=== PATIENT | male | born 1980 | race Caucasian/White ===

== ENCOUNTER → 2018-03-10 22:40 | Outpatient (CLI) | payer OTHER, SELFPAY ==
[2018-03-10 22:56] LABS: Uric Acid 7.7 mg/dL (3.5-7.2)
== END ==
PROVIDERS: Visit Provider Nurse Practitioner
DX: M10.9 Gout, unspecified (principal)
CPT/HCPCS: 84550

== ENCOUNTER → 2019-10-22 21:49 | Outpatient (CLI) | payer OTHER, SELFPAY ==
[2019-10-22 17:22] VITALS: BMI 27.0
[2019-10-22 22:14] LABS: Absolute Lymphocyte Count 2.02 X10^3/uL (0.83-4.51); Absolute Neutrophil Count 3.9 X10^3/uL (2.0-7.7); Basophil# 0.04 X10^3/uL; Basophil% 0.6 % (0-1); Eosinophil# 0.31 X10^3/uL; Eosinophils% 4.5 % (0-5); Hematocrit 45.6 % (40-54); Hemoglobin 15.7 g/dL (13.0-16.5); Lymphocyte # 2.02 X10^3/ul (4.0); Lymphocyte % 29.5 % (19-41); Mean Corp Hgb Conc 34.4 g/dL (32-36); Mean Corpuscular Hgb 30.2 pg (27.0-32.0); Mean Corpuscular Volume 87.7 fL (80-94); Mean Platelet Vol. 11.7 fl (6.2-12.0); Monocyte# 0.55 X10^3/uL; NRBC Flagged by Analyzer 0 % (0-5); Neutrophil # 3.92 X10^3/uL (2.7-7.7); Neutrophil % 57.3 % (47-70); Platelet Count 187 K/mm3 (150-450); RBC Distribution Width CV 11.8 % (11.6-14.6); RBC Distribution Width SD 37.2 fl (35.1-43.9); White Blood Count 6.9 K/mm3 (4.4-11.0)
[2019-10-22 22:21] LABS: ALB/GLOB Ratio 1.2 RATIO (0.9-2.4); AST(SGOT) 26 U/L (15-37); Alanine Aminotransfer ALT/SGPT 45 U/L (16-61); Alkaline Phosphatase 62 U/L (45-117); Amylase 61 U/L (25-115); Anion Gap 8 (5-15); BUN 15 mg/dL (7-18); BUN/Creat Ratio 10.9 RATIO (10-20); Calcium,Total 8.6 mg/dL (8.5-10.1); Chloride 105 mmol/L (98-107); Creatinine, Serum 1.37 mg/dL (0.70-1.30); EST Glomerular Filtration Rate 62 mL/min (>60); Est Glom Filt Rate - Afr Amer 75 mL/min (>60); Globulin 3.4 g/dL (2.2-4.2); Glucose 124 mg/dL (74-106); Lipase 106 U/L (73-393); Potassium 3.5 mmol/L (3.5-5.1); Protein, Total 7.4 g/dL (6.4-8.2); Sodium Level 140 mmol/L (136-145)
== END ==
PROVIDERS: Referring Provider Nurse Practitioner; Visit Provider Nurse Practitioner
DX: R10.13 Epigastric pain (principal)
CPT/HCPCS: 80053; 82150; 83690; 85025

== ENCOUNTER → 2020-07-05 21:46 | Outpatient (CLI) | payer OTHER, SELFPAY ==
[2020-07-05 16:45] VITALS: BMI 27.9
[2020-07-05 22:14] LABS: CPK Total, Creatine Kinase 194 U/L (39-308); Magnesium 2.2 mg/dL (1.6-2.6)
== END ==
PROVIDERS: Referring Provider Nurse Practitioner; Visit Provider Nurse Practitioner
DX: M62.838 Other muscle spasm (principal)
CPT/HCPCS: 82550; 83735

== ENCOUNTER → 2025-02-11 | Outpatient (CLI) | payer OTHER, SELFPAY ==
--- OUTSIDE RECORDS SUMMARY | 2025-02-11 22:47 | XMS RPT_ITS | CCD ---
Author Organization [facility] Care Team Providers Care Digital Engineer Name Role Phone Venice Aceves Unavailable Medications Completed/Discontinued Medications Medication Drug Class(es) Dates Sig (Normalized) Sig (Original) Magnesium (1 source) take 1 tablet by junior th once daily Magnesium TABS take one tablet by ORAL route daily Quantity: 0 Refills: 0 Ordered: 23-Oct-2020 DO Active Multiple Vitamins Oral Tablet (1 source) take 1 tablet by junior th once daily Multiple Vitamins Oral Tablet TAKE 1 TABLET DAILY. Quantity: 0 Refills: 0 Ordered: 23-Oct-2020 DO Active Vitamin B Complex Oral Tablet (1 source) take 1 tablet by junior th once daily Vitamin B Complex Oral Tablet TAKE 1 TABLET DAILY. Quantity: 0 Refills: 0 Ordered: 23-Oct-2020 DO Active Problems Problem Classification Problem Date Documented Da te Episodic/Chronic Other lower respiratory disease (1 source) Snoring; Translations: [Other respiratory abnormalities] Episodic Other nervous system disorders (1 source) Muscle fasciculation; Translations: [Abnormal involuntary movements] Episodic Results Test Name Value Interpretation Reference Range [facility] MRI Lumbar Spine w/oon 05-29 MRI Lumbar Spine w/o Clinical Information: Patient complains of low back pain radiates to both legs since 18 months. Study Technique: MRI lumbar spine was performed with Sagittal T1, T2 and STIR images. Axial T1 and T2 images were obtained. Comparisons: None. Findings: For purposes of numbering lumbar vertebral bodies on this study the most inferior normal diameter disc space will be considered L5-S1. No transitional vertebral body segments. Plain film radiographs would be required to confirm nomenclature used in this report, particularly prior to any spine intervention. Vertebral body height: No compression deformities. Disc height and Disc signal:Disc desiccation at L5-S1 level. Alignment: No spondylolisthesis. Straightening is noted. Bone marrow signal: No reconversion Conus medullaris: No findings seen. Paraspinal soft tissues: No abnormal inflammation or lesion detected. Other findings: No evidence of any focal lesion noted. Axial Imaging: L1-2: No significant disc bulge is seen. Facet articulations are intact. The neural foramina are patent. No evidence of canal stenosis at this level. L2-3: No significant disc bulge is seen. Facet articulations are intact. The neural foramina are patent. No evidence of canal stenosis at this level. L3-4: Circumferential bulge is seen indenting the thecal sac. There is mild bilateral neural foraminal stenosis. No evidence of canal stenosis at this level. Facet joint arthropathy and ligamentumflavum hypertrophy is noted. L4-5: Circumferential bulge is seen indenting the thecal sac. There is moderate bilateral neural foraminal stenosis. No evidence of canal stenosis at this level. Facet joint arthropathy and ligamentumflavum hypertrophy is noted. L5-S1: Circumferential bulge with 6 mm broad based posterior protrusion is seen compressing the thecal sac. There is moderate bilateral neural foraminal and mild central canal stenosis. Facet joint arthropathy and ligamentumflavum hypertrophy is noted. Impressions: 1. Circumferential bulge at L3-4 causing mild bilateral neural foraminal stenosis 2. Circumferential bulge at L4-5 causing moderate bilateral neural foraminal stenosis. 3. Circumferential bulge with broad based posterior herniation at L5-S1 causing moderate bilateral neural foraminal and mild central canal stenosis. Referring physician: Please call [phone] if you would like to speak with the radiologist about this report. 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 COMPARISON: None. ACCESSION NUMBER(S): [id number] ORDERING CLINICIAN: ALEXANDRIA ROMAN TECHNIQUE: MRI of the brain was performed with acquisition of axial FLAIR, axial diffusion-weighted, axial T1, axial T2 gradient echo, axial T2, axial T1 post-contrast, and volumetric axial T1 weighted postcontrast sequence with multiplanar reformats. Contrast: 16 mL of MultiHance was injected intravenously. FINDINGS: There is no acute intracranial hemorrhage or infarct. There is no abnormal extra-axial fluid collection or mass effect. The ventricles, sulci, and basilar cisterns are within normal limits. There is no signal abnormality within the brain parenchyma. There is no abnormal intracranial enhancement or mass. There is mild mucosal thickening within the left maxillary and sphenoid sinuses and within the ethmoid air cells, otherwise the visualized paranasal sinuses and mastoid air cells are clear. IMPRESSION: Unremarkable MRI brain. This study was interpreted at [facility]. Electronically signed by: MARELY LION MD Normal [facility] Office Visit (Neuro-General) on 10-23-2020 Follow-up visit Provider Impressions The patient is complaining of jumpy muscles that could be consistent with fasciculations. He also has snoring and states that these movements will wake him up in the middle of the night. His neurological examination is normal. The differential diagnosis for fasciculations includes myasthenia, ALS, MS, hypothyroidism, alcohol use, caffeine use, HIV, low copper level and B12 deficiency. Patient Discussion/Summary The patient needs an MRI of the brain with and without gadolinium. The patient needs a 3 limb EMG and nerve conduction study. The patient needs an extensive lab work-up and this has been ordered. The patient needs to decrease his alcohol and caffeine use. If the work-up is negative I will consider a second opinion with Dr. Paty Gann. I did tell him to call me 1 week after he has had the testing and I will give him the results over the phone. I discussed all these issues in detail with the patient and answered all of his questions. The patient follow-up with me in 6 months. Diagnoses/Problems Assessed Fasciculation (781.0) (R25.3) Snoring (786.09) (R06.83) Orders Fasciculation Good hand washing is one of the best ways to control the spread of germs.; Status:Complete; Done: 23Oct2020 Acetylcholine Receptor Binding Antibody; Status:Active; Requested for:23Oct2020; Patient Treatment Education; Status:Complete; Done: 23Oct2020 Acetylcholine Receptor Blocking Antibody; Status:Active; Requested for:23Oct2020; Acetylcholine Receptor Modulating Ab; Status:Active; Requested for:23Oct2020; Ceruloplasmin, Serum; Status:Active; Requested for:23Oct2020; Complete Blood Count + Differential; Status:Active; Requested for:23Oct2020; Comprehensive Metabolic Panel; Status:Active; Requested for:23Oct2020; Copper, Serum; Status:Active; Requested for:23Oct2020; Copper, Urine; Status:Active; Requested for:23Oct2020; EMG and Nerve Conduction; Status:Hold For - Scheduling; Requested for:23Oct2020; Electrodiagnostic Physician to determine whether Neuromuscular Ultrasound to be performed for optimal study : Yes Electrodiagnostic Physician to determine optimal study : Yes Patient is unable to stand or is >300lbs? : No Additional Clinical Information: : The patient is a left upper and lower extremity EMG and nerve conduction study. Laterality : Left EMG Indication : Peripheral Polyneuropathy Ferritin, Serum; Status:Active; Requested for:23Oct2020; Folate, Serum; Status:Active; Requested for:23Oct2020; HIV 1/2 ANTIGEN/ANTIBODY SCREEN WITH REFLEX TO CONFIRMATION; Status:Active; Requested for:23Oct2020; Iron + TIBC, Serum; Status:Active; Requested for:23Oct2020; Methylmalonic Acid, Serum; Status:Active; Requested for:23Oct2020; MRI Brain w/wo Contrast; Status:Hold For - Scheduling; Requested for:23Oct2020; Radiologist to Determine Optimal Study : Y Does the patient have a Cochlear Implant, Pacemaker, Defibrilator, Pacing Wire, Brain Aneurysm Clip, Implanted Nerve or Bone Graft Simulator, Implanted Breast Tissue Java Programming Professor, Glucose Monitor, or Neulasta Device? : No What are the patient's signs and symptoms? : Fasciculations Musk Antibody-; Status:Active; Requested for:23Oct2020; Parathormone Intact, Serum; Status:Active; Requested for:23Oct2020; T4 - Free Thyroxine, Serum; Status:Active; Requested for:23Oct2020; Triiodothyronine, Level (T3); Status:Active; Requested for:23Oct2020; TSH - Thyroid Stimulating Hormone, Serum; Status:Active; Requested for:23Oct2020; Vitamin B12, Serum; Status:Active; Requested for:23Oct2020; Vitamin B6, Serum; Status:Active; Requested for:23Oct2020; Vitamin D 25-Hydroxy; Status:Active; Requested for:23Oct2020; Vitamin-D 1,25-Dihydroxy, Level; Status:Active; Requested for:23Oct2020; Snoring In Lab PSG Sleep Study, 6 years of age and greater; Status:Hold For - Scheduling; Requested for:23Oct2020; Non-ambulatory,wheelch air,other physical limitations? : No Ensuresis(prep bed), Technology dependent(Gtube/trach) ? : No O2 requirements during the study? : No PSG PRECAUTIONS: Please select any applicable precautions : None COMORBIDITIES : None PSG INDICATIONS : Evaluation/treatment of Obstructive Sleep Apnea [G47.33] Study Type : Diagnostic SocHx: Former smoker Tobacco Use Screening; Status:Complete; Done: 23Oct2020 Chief Complaint Twitching Neurologic Evaluation. Leg spasms History of Present Illness The patient states that in May of this year he noted twitching mainly in his legs. He did not feel that his whole leg was spasming but that he was having part of his muscle that were twitching. The patient noted this in his back and occasionally in his shoulders. He denies any facial or extremity weakness or numbness, voice changes, double vision, vision loss, headaches, neck pain, walking problems, problems with coordination or difficulty going up or down stairs. The patient states that last November he was helping someone move boxes and i (more content not included)... Normal [facility] Encounters Encounter Date Encounter Type Care Provider Facility Start: 12-19-2020 Patient encounter procedure Venice Aceves Work Phone: [facility] Work Phone: Procedures Date Procedure Procedure Detail Performing Clinician No history of surgery Venice Aceves Work Phone: Plan of Treatment Date Care Activity Detail Author Start: 05-15-2021 NORTH, Provider : Alexandria Roman, Status: Pen, Time: 11:00 AM NORTH, Provider: Alexandria Roman, Status: Pen, Time: 11:00 AM [id number] Work Phone: Payers Date Payer Category Payer Policy ID Unknown [employer] Social History Date Type Detail Facility Former smoker Former smoker [facility] [employer] [facility] Work Phone: Summary Purpose Family History No Family History Records FoundUnknown Family Member Name Dates Details Family history of cerebrovas cular accident (CVA): Paternal Grandfather(V17.1, Z82.3) Status:Active Advance Directives No Advanced Directives Records FoundNo Advanced Directives Records FoundNo Advanced Directives Records Found Additional Source Comments (unrecognized sect ion and content) No Status Records FoundNo Status Records FoundNo Status Records Found INFORMATION SOURCE (unrecogn ized section and content) DATE CREATED AUTHOR 10/23/2020 [facility] DATE CREATED AUTHOR AUTHOR'S ORGANIZ ATION 11/15/2020 [facility] DATE CREATED AUTHOR AUTHOR'S ORGANIZ ATION 06/01/2021 [facility] dical Specialist FOR RECORDS PERTAINING TO PATIENTS WHO ARE OR HAVE BEEN ENROLLED IN A CHEMICAL DEPENDENCY/SUBSTANCEABUSE PROGRAM, SOME INFORMATION MAY BE OMITTED. This clinical summary was aggregated from multiple sources. Caution should be exercised in using it in the provision of clinical care. This summary normalizes information from multiple sources, and as a consequence, information in this document may materially change the coding, format and clinical context of patient data. In addition, data may be omitted in some cases. CLINICAL DECISIONS SHOULD BE BASED ON THE PRIMARY CLINICAL RECORDS. [facility] [employer] provides no warranty or guarantee of the accuracy or completeness of information in this document.
[2025-02-11 23:45] LABS: AST(SGOT) 24 U/L (<=37); Alanine Aminotransfer ALT/SGPT 33 U/L (<=46); Albumin, Serum 4.5 g/dL (3.5-5.0); Alkaline Phosphatase 61 U/L (40-129); Anion Gap 14 (5-15); BUN 12 mg/dL (4-19); BUN/Creat Ratio 11.8 RATIO (10-20); Calcium,Total 9.5 mg/dL (7.6-11.0); Carbon Dioxide 23.3 mmol/L (21.0-32.0); Chloride 102 mmol/L (98-108); Globulin 2.9 g/dL (2.2-4.2); Glucose 100 mg/dL (70-99); Lipase 28 U/L (13-75); Potassium 4.0 mmol/L (3.3-5.1); Uric Acid 7.0 mg/dL (3.5-7.2)
== END | disposition home or self-care (01) ==
PROVIDERS: PCP Nurse Practitioner; Visit Provider Nurse Practitioner
DX: M10.071 Idiopathic gout, right ankle and foot (principal); R10.11 Right upper quadrant pain; K21.00 Gastro-esophageal reflux disease with esophagitis, without bleeding
CPT/HCPCS: 80053; 83690; 84443; 84550